=== PATIENT | female | born 1985 | race American Indian/Alaskan Native ===

== ENCOUNTER 2016-06-09 13:39 | Emergency (ER) | payer OTHER ==
[2016-06-09] MEDS ORDERED: Lidocaine 1% 50 ML MDV INJECT ONE (14:15)
[2016-06-09 14:16] VITALS: BP 143/73
--- NOTE | 2016-06-09 14:51 | EDM.PDOC ---
ED HPI Skin/Rash - General Chief Complaint: Laceration Stated Complaint: L HAND LAC Time Seen by Provider: 06/09/16 13:53 Source: Reports: Patient History Limitations: Reports: No limitations - History of Present Illness INITIAL COMMENTS - FREE TEXT/NARRATIVE: 30 year old female presents for evaluation and treatment of a laceration to the left dorsal hand. Injury occurred prior to arrival in the ER. She was attempting to open a package with a knife when the knife sipped cutting her left dorsal hand between her thumb and pointer finger. She denies any numbness or tingling. She has full range of motion to the hand. Patient is right-handed. Tetanus is up-to-date. - Related Data Allergies Allergy/AdvReac Type Severity Reaction Status Date / Time No Known Allergies Allergy Verified 06/09/16 14:16 Home Meds: Ambulatory Orders Medication Instructions Recorded Confirmed . [No Known Home Meds] 06/09/16 06/09/16 Past Medical History - Past Health History Medical/Surgical History: Denies Medical/Surgical History Social & Family History - Tobacco Use Smoking Status *Q: Unknown Ever Smoked ED ROS GENERAL - Review of Systems Review Of Systems: See Below Musculoskeletal: Reports: hand pain (left ) Skin: Reports: wound (left dorsal hand) Neurological: Denies: Numbness, Tingling ED EXAM, SKIN/RASH Exam: See Below Exam Limited By: No limitations General Appearance: alert, WD/WN, no apparent distress Respiratory/Chest: no respiratory distress Cardiovascular: normal peripheral pulses, regular rate, rhythm Peripheral Pulses: 2+: radial (L), radial (R) Extremities: normal range of motion (able to make a fist, oppose fingers to thumb, flex and extend fingers of the left hand) Neurological: alert, oriented, normal cognition Psychiatric: normal affect, normal mood Skin: Warm, Dry, Wound/incision Location, Skin: upper extremity, left (1.2 cm laceration to the left dorsal hand in between thumb and pointer finger) Characteristics: linear Associated features: No: warmth, tenderness, swelling, weeping ED SKIN PROCEDURES - Laceration/Wound Repair Left Dorsal Lac/wound length in cm: 1.2 Appearance: subcutaneous, linear Distal NVT: neuro & vascular intact, no tendon injury Anesthetic type: local Local anesthesia - Lidocaine (Xylocaine): 1% plain Local anesthetic volume: 2cc Skin prep: saline, sterile drape, other (surclens) Closed with: sutures Suture size: 4-0 # of sutures: 3 Suture type: nylon, interrupted, simple Sterile dressing applied: nurse Tetanus status addressed: Yes Complications: No Course - Vital Signs Last Recorded V/S: Last Vital Signs Temp 36.7 C 06/09/16 14:13 Pulse 95 06/09/16 14:13 Resp 18 06/09/16 14:13 BP 143/73 H 06/09/16 14:13 Pulse Ox 97 06/09/16 14:13 - Orders/Labs/Meds Meds: Medications Discontinued Medications Generic Name Dose Route Start Last Admin Trade Name Arron PRN Reason Stop Dose Admin Lidocaine HCl 50 ml 06/09/16 14:15 06/09/16 14:20 Xylocaine 1% INJECT 06/09/16 14:16 50 ml ONETIME ONE Administration - Re-Assessments/Exams Free Text/Narrative Re-Assessment/Exam: 06/09/16 14:45 3 sutures placed to the left dorsal hand. Patient tolerated the procedure well. Tetanus is up-to-date. Discharge instructions as documented. Departure - Departure Time of Disposition: 14:48 Disposition: Home, Self-Care 01 Condition: good Clinical Impression: Laceration Instructions: Laceration Care, Adult Referrals: Ann Waddell PA [Primary Care Provider] - Forms: ED Department Discharge Additional Instructions: Wash wound with gentle soap and water twice a day. Antibacterial ointment to the wound twice a day x 3 days. Monitor for signs of infection such as increased erythema, pus and swelling. Present to the clinic or the ER should these develop. Sutures out in 10 days. Any clinic should be able to remove these for you. The walk-in clinic located on the first floor of the [address] open Saturday thru Saturday and will remove the sutures for free. OTC tylenol or motrin as needed for pain and discomfort. Please return to the ER should your symptoms change or worsen.
== END 2016-06-09 14:57 | disposition home or self-care (01) ==
LOC: JD.ED 13:39
DX: S61.412A Laceration without foreign body of left hand, initial encounter (principal); W26.0XXA Contact with knife, initial encounter
CPT/HCPCS: 12001; 99282; 99283-25